=== PATIENT | female | born 1970 | race Caucasian/White ===

== ENCOUNTER 2025-08-05 12:36 | Outpatient (CLI) | payer MEDICAID, SELFPAY ==
--- NOTE | ~2025-08-05 | MM_ITS ---
EXAMINATION: MM screening kami BI w rodo HISTORY: Screening. TECHNIQUE: Craniocaudal and mediolateral oblique 3-D tomosynthesis images were obtained and synthetic 2-D images were generated. CAD analysis was submitted and interpreted. COMPARISON: 2023, 2022, and 2020. BREAST PARENCHYMAL COMPOSITION: Dense: The breasts are heterogeneously dense FINDINGS: No suspicious masses are seen. There are no suspicious calcifications. No unexplained architectural distortion is seen. There are no skin or nipple abnormalities identified. There is no adenopathy seen on the images submitted. IMPRESSION: No mammographic or sonographic evidence to suggest malignancy is seen. The patient may return to screening mammography as per ACR guidelines. BI-RADS 1 - Negative. 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 The al ent may return to screening mammography as per ACR guidelines. BI-RADS 1 - Negative.
== END 2025-08-05 12:37 | disposition home or self-care (01) ==
LOC: CHSIMG 12:40
PROVIDERS: PCP Physician Assistant; Visit Provider Physician Assistant
DX: Z12.31 Encounter for screening mammogram for malignant neoplasm of breast (principal)
CPT/HCPCS: 77063; 77067